=== PATIENT | female | born 1985 | race Caucasian/White ===

== ENCOUNTER 2017-12-24 21:27 | Outpatient (CLI) | payer OTHER ==
[2017-12-25] MEDS: ACETAMINOPHEN 500 MG TAB PO (00:17)
== END 2017-12-25 01:42 | disposition home or self-care (01) ==
LOC: OBT 21:27 → L-D 21:28
DX: O62.9 Abnormality of forces of labor, unspecified (principal); Z3A.37 37 weeks gestation of pregnancy
CPT/HCPCS: 76815

== ENCOUNTER 2017-12-26 20:57 | Outpatient (CLI) | payer OTHER ==
[2017-12-26 22:27] LABS: ADD UMIC YES; UR ASCORBIC ACID NEGATIVE (NEGATIVE); UR BILIRUBIN (Dip) NEGATIVE (NEGATIVE); UR BLOOD (Dip) NEGATIVE (NEGATIVE); UR CALCIUM OXALATE CRYSTAL FEW /HPF (NONE SEEN); UR CLARITY CLEAR (CLEAR); UR COLOR YELLOW (YELLOW); UR GLUCOSE (Dip) NEGATIVE (NEGATIVE); UR KETONES (Dip) NEGATIVE (NEGATIVE); UR LEUKOCYTE ESTERASE (Dip) NEGATIVE Leu/ul (NEGATIVE); UR MUCUS MODERATE /HPF (NONE SEEN); UR NITRITE (Dip) NEGATIVE (NEGATIVE); UR RBC 1 /HPF (0-5); UR SPECIFIC GRAVITY (Dip) 1.028 (1.003-1.030); UR TOTAL PROTEIN (Dip) 1+ mg/dl (NEGATIVE); UR UROBILINOGEN (Dip) NEGATIVE (NEGATIVE); UR WBC 4 /HPF (0-5)
== END 2017-12-27 00:13 | disposition home or self-care (01) ==
LOC: OBT 12-27 00:13 → L-D 20:58
DX: O62.9 Abnormality of forces of labor, unspecified (principal); Z3A.37 37 weeks gestation of pregnancy
CPT/HCPCS: 76815; 81001; 87086

== ENCOUNTER 2018-07-23 23:08 | Emergency (ER) | payer OTHER | END 2018-07-24 01:45 | disposition home or self-care (01) | LOC: FTE 23:08 | DX: K08.89 Other specified disorders of teeth and supporting structures (principal) | CPT/HCPCS: 99283; Z7502 ==

== ENCOUNTER 2019-02-27 06:19 | Emergency (ER) | payer OTHER | END 2019-02-27 07:20 | disposition home or self-care (01) | LOC: FTE 06:19 | DX: K08.89 Other specified disorders of teeth and supporting structures (principal) | CPT/HCPCS: 99283; Z7502 ==